=== PATIENT | female | born 1990 | race Caucasian/White ===

== ENCOUNTER → 2018-04-04 | Outpatient (CLI) | payer MEDICAID | END | disposition home or self-care (01) | LOC: LABWHC1 14:50 | PROVIDERS: ATTEND Internal Medicine Interventional Cardiology | DX: E03.9 Hypothyroidism, unspecified (principal) | CPT/HCPCS: 36415; 84443 ==

== ENCOUNTER → 2018-04-06 | Outpatient (CLI) | payer MEDICAID ==
--- NOTE | 2018-04-06 14:14 | ECHOF ---
Referral Reason:R94.31 abnormal EKG MEASUREMENTS -------- HEIGHT: 170.2 cm WEIGHT: 89.8 kg BP: 146/70 RVIDd: 2.8 cm (< 3.3) IVSd: 0.9 cm (0.6 - 1.1) LVIDd: 4.5 cm (3.9 - 5.3) LVPWd: 0.8 cm (0.6 - 1.1) IVSs: 1.4 cm LVIDs: 3.0 cm LVPWs: 1.2 cm LA Diam: 3.1 cm (2.7 - 3.8) Ao Diam: 2.7 cm (2.0 - 3.7) AV Cusp: 2.0 cm (1.5 - 2.6) MV EXCURSION: 16.920 mm (> 18.000) MV EF SLOPE: 101 mm/s (70 - 150) EPSS: 0.5 cm MV E Kevan: 1.40 m/s MV DecT: 143 ms MV A Kevan: 1.15 m/s MV E/A Ratio: 1.21 RAP: 5.00 mmHg RVSP: 28.48 mmHg FINDINGS -------- Sinus rhythm. This was a technically good study. The left ventricular size is normal. Left ventricular wall thickness is normal. Overall left vent ricular systolic function is normal with, an EF between 60 - 65 %. The right ventricle is normal in size. Normal LA size by volume 22+/-6 ml/m2. The right atrium is normal in size. The aortic valve is trileaflet and appears structurally normal. The mitral valve is normal. Mild tricuspid regurgitation present. Right ventricular systolic pressure is normal at < 35 mmHg. There is no pulmonic regurgitation present. The aortic root size is normal. Normal inferior vena cava with normal inspiratory collapse consistent with estimated right atrial pre ssure of 5 mmHg. The inferior vena cava is mildly dilated. There is no pericardial effusion. CONCLUSIONS -------- 1. Sinus rhythm. 2. This was a technically good study. 3. The left ventricular size is normal. 4. Left ventricular wall thickness is normal. 5. Overall left ventricular systolic function is normal with, an EF between 60 - 65 %. 6. The right ventricle is normal in size. 7. Normal LA size by volume 22+/-6 ml/m2. 8. The right atrium is normal in size. 9. The aortic valve is trileaflet and appears structurally normal. 10. The mitral valve is normal. 11. Mild tricuspid regurgitation present. 12. Right ventricular systolic pressure is normal at < 35 mmHg. 13. There is no pulmonic regurgitation present. 14. The aortic root size is normal. 15. Normal inferior vena cava with normal inspiratory collapse consistent with estimated right atrial pressure of 5 mmHg. 16. The inferior vena cava is mildly dilated. 17. There is no pericardial effusion. LETTER OF CREDIT CLERK: Megan Ramos RDCS
--- NOTE | 2018-04-06 14:37 | ECHOS ---
STRESS ECHOCARDIOGRAM INDICATIONS: Abnormal EKG. MEDICATIONS: Control, Atenolol, Norvasc, Cozaar. BASELINE HEART RATE: 95 BASELINE BLOOD PRESSURE: 146/70 MAXIMUM HEART RATE: 170 MAXIMUM BLOOD PRESSURE: 169/64 85% MPHR: 163 100% MPHR: 192 METS: 10.3 MAXIMUM STAGE REACHED: 3 TOTAL EXERCISE TIME: 9:00 CLINICAL INFORMATION: STRESS DATA: Pretesting physical examination showed a heart rate of 95, pressure is 146/70 mmHg. Baseline EKG showed sinus mechanism with nonspecific changes. The patient exercised on the treadmill according to Carlos protocol for a total of 9 minute and achieved 10.3 METS. Max heart rate was 170 beats per minute which is about 88% of maximum predicted heart rate. Maximum blood pressure was 169/64 mmHg. The EKG showed about 1 mm upsloping and horizontal ST-segment changes. ECHOCARDIOGRAM IMAGES: On echocardiogram images from parasternal long axis view, parasternal short axis, apical 4 chamber and apical 2 chamber view were obtained as the baseline images, at the peak of the heart rate, as well as on recovery. The echocardiogram images showed good augmentation in the left ventricular systolic function without any evidence of wall motion abnormalities concerning for ischemia. CONCLUSION: 1. Excellent exercise tolerance. 2. Mild EKG changes in response to exercise. 3. Normal echocardiogram in response to exercise. 4. Essentially normal stress echocardiogram for the patient. MMODL / IJN: [id number] /
== END | disposition home or self-care (01) ==
LOC: RADNMMAIN 09:54
PROVIDERS: ATTEND Internal Medicine Interventional Cardiology
DX: I07.1 Rheumatic tricuspid insufficiency (principal); I87.8 Other specified disorders of veins
CPT/HCPCS: 93306; 93351

== ENCOUNTER → 2018-05-07 | Outpatient (CLI) | payer MEDICAID ==
[2018-05-07 11:26] LABS: T4, Free (Free Thyroxine) 1.06 ng/dL (0.78-2.19)
[2018-05-08 13:30] LABS: Thyroid Stim Immun Quant <0.10 IU/L (<0.10)
[2018-05-10 16:36] LABS: Metanephrine, Free 53 pg/mL (< OR = 57); Normetanephrine, Free 60 pg/mL (< OR = 148); Total, Free (MN + NMN) 113 pg/mL (< OR = 205)
== END ==
LOC: LABWHC1 10:17
PROVIDERS: ATTEND Internal Medicine Endocrinology, Diabetes & Metabolism
DX: I10 Essential (primary) hypertension (principal); E05.90 Thyrotoxicosis, unspecified without thyrotoxic crisis or storm
CPT/HCPCS: 36415; 82384; 83835; 84439; 84443; 84445; 84481; 86376

== ENCOUNTER → 2018-05-09 | Outpatient (CLI) | payer MEDICAID ==
--- NOTE | 2018-05-10 09:26 | NM ---
EXAMINATION TYPE: NM thyroid image w uptake DATE OF EXAM: 05/10/2018 COMPARISON: NONE HISTORY: Hyperthyroidism TECHNIQUE: Thyroid iodine uptake is calculated and images performed after the oral administration of 319 uCi 1-123 Capsule. FINDINGS: There is normal distribution of activity throughout the gland. The 4 hour iodine uptake is calculated at 13.5% (normal range 8-14%). The 24-hour iodine uptake is calculated at 29% (normal ran ge 15-35%). IMPRESSION: 1. Uptake is at the upper limits of normal.
== END | disposition home or self-care (01) ==
LOC: RADNMMAIN 08:41
PROVIDERS: ATTEND Internal Medicine Endocrinology, Diabetes & Metabolism
DX: E05.90 Thyrotoxicosis, unspecified without thyrotoxic crisis or storm (principal)
CPT/HCPCS: 78014; A9516

== ENCOUNTER → 2018-05-21 | Outpatient (CLI) | payer MEDICAID ==
--- NOTE | 2018-05-21 16:58 | CT ---
EXAMINATION TYPE: CT abdomen wo/w con DATE OF EXAM: 05/21/2018 COMPARISON: None HISTORY: Palpitations, hypertension and decreased TSH. CT DLP: 887.7 mGycm Automated exposure control for dose reduction was used. TECHNIQUE: Helical acquisition of images was performed from the lung bases through the top of iliac crest to include entire abdomen. Patient received oral and intravenous contrast. CONTRAST: Performed with Oral Contrast and without and with IV Contrast, patient injected with 100 mL of Isovue M300. FINDINGS: LUNG BASES: No significant abnormality is appreciated. LIVER/GB: No significant abnormality is appreciated. PANCREAS: No significant abnormality is seen. SPLEEN: No significant abnormality is seen. ADRENALS: No significant abnormality is seen. KIDNEYS: No significant abnormality is seen. BOWEL: No significant abnormality is seen. LYMPH NODES: No significant abnormality is appreciated. OSSEOUS STRUCTURES: No significant abnormality is seen. FREE AIR: No Free Air visible ASCITES: None visible. RETROPERITONEAL ADENOPATHY: No Retroperitoneal Adenopathy visible. IMPRESSION: NO SIGNIFICANT ABNORMALITIES EVIDENT.
== END | disposition home or self-care (01) ==
LOC: RADCTMAIN 15:35
PROVIDERS: ATTEND Internal Medicine Endocrinology, Diabetes & Metabolism
DX: E27.9 Disorder of adrenal gland, unspecified (principal)
CPT/HCPCS: 74170; Q9967

== ENCOUNTER → 2018-06-23 | Outpatient (CLI) | payer MEDICAID ==
[2018-06-23 23:18] LABS: Creatinine 24 Hour,Urine 1.39 g/24Hr (0.80-1.80)
[2018-06-26 12:04] LABS: Dopamine 24 Hr Urine 416 ug/day (65-400); Epinephrine 24 Hr Urine 8 ug/day (0-20); Norepinephrine 24 Hr Urine 46 ug/day (15-80); Total Catecholamines Urine 54 ug/day (15-100); Urine Creatinine,24 Hr 1.7 gm/24h (0.8-1.8)
== END ==
LOC: LABWHC1 09:22
PROVIDERS: ATTEND Internal Medicine Endocrinology, Diabetes & Metabolism
DX: D35.00 Benign neoplasm of unspecified adrenal gland (principal)
CPT/HCPCS: 36415; 81050; 82384; 82570; 83835

== ENCOUNTER → 2018-07-27 | Outpatient (CLI) | payer MEDICAID ==
[2018-07-27 10:22] LABS: Basophils # (A) 0.1 k/uL (0-0.2); Basophils % (A) 1 %; Eosinophils # (A) 0.1 k/uL (0-0.7); Eosinophils % (A) 1 %; HCT 44.1 % (34.0-46.0); HGB 14.4 gm/dL (11.4-16.0); Lymphocytes # (A) 2.2 k/uL (1.0-4.8); Lymphocytes % (A) 23 %; MCH 30.9 pg (25.0-35.0); MCHC 32.6 g/dL (31.0-37.0); MCV 94.7 fL (80.0-100.0); Mean Platelet Volume 7.3; Monocytes # (A) 0.6 k/uL (0-1.0); Monocytes % (A) 6 %; Neutrophils # (A) 6.6 k/uL (1.3-7.7); Neutrophils % (A) 68 %; Platelet Count 288 k/uL (150-450); RBC 4.66 m/uL (3.80-5.40); RDW 13.4 % (11.5-15.5); WBC 9.7 k/uL (3.8-10.6)
[2018-07-27 17:28] LABS: T4, Free (Free Thyroxine) 1.3 ng/dL (0.80-1.80)
== END ==
LOC: LABWHC1 09:04
PROVIDERS: ATTEND Internal Medicine Endocrinology, Diabetes & Metabolism
DX: E05.90 Thyrotoxicosis, unspecified without thyrotoxic crisis or storm (principal); I10 Essential (primary) hypertension
CPT/HCPCS: 36415; 84439; 84443; 84450; 84460; 84481; 85025

== ENCOUNTER → 2018-09-27 | Outpatient (CLI) | payer MEDICAID ==
[2018-09-27 19:14] LABS: T4, Free (Free Thyroxine) 0.9 ng/dL (0.80-1.80)
== END | disposition home or self-care (01) ==
LOC: LABWHC1 11:22
PROVIDERS: ATTEND Internal Medicine Endocrinology, Diabetes & Metabolism
DX: I10 Essential (primary) hypertension (principal); E05.90 Thyrotoxicosis, unspecified without thyrotoxic crisis or storm
CPT/HCPCS: 36415; 84439; 84443; 84481

== ENCOUNTER → 2018-10-13 | Outpatient (CLI) | payer MEDICAID | LOC: LABWHC1 08:23 | PROVIDERS: ATTEND Internal Medicine Endocrinology, Diabetes & Metabolism | DX: I10 Essential (primary) hypertension (principal); E05.90 Thyrotoxicosis, unspecified without thyrotoxic crisis or storm; R25.1 Tremor, unspecified | CPT/HCPCS: 36415 ==

== ENCOUNTER → 2018-10-16 | Outpatient (CLI) | payer MEDICAID ==
--- NOTE | 2018-10-16 16:50 | CONS ---
CONSULTATION REASON FOR CONSULTATION: Insomnia. 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 Over the past one year the patient has been having difficulties with sleep maintenance. Prior to that, her sleep quality was good. She never had any issues with her sleep quality prior to that during her teenage years and her early 20s. The patient was identified to have issues with hypertension. Subsequently she started having problems with a tremor, and she also had some limited weight loss. She was seen by Dr. Ross, and the patient has been placed on various antihypertensive medication, including a diuretic. The diuretic was subsequently discontinued and the patient is currently taking a combination of losartan and Norvasc. She has been worked up on outpatient basis, including an echocardiogram that showed no significant abnormalities. The patient has a preserved LV function with an ejection fraction of 60% to 65%. There was no evidence of any hypertensive heart disease and there is no evidence of pulmonary hypertension. Subsequently she was seen by Endocrinology. Based on her elevated blood pressures, the patient was given a pheochromocytoma screen, and serum metanephrines and normetanephrines were checked; her levels were not elevated. Nevertheless, the patient is still being considered for the same diagnosis and she was referred to [facility]. She was noted to also be having a suppressed TSH. Her TSH was down to 0.8 with a free T4 and free T3 being normal at 1.3 and 3.5, respectively. Based on her symptoms, she was treated for hyperthyroidism and she was started on high-dose Tapazole 15 mg, which was later on dropped down to 10 mg, knowing that her TSH came up at 6.9 and her free T4 came down to 0.9 and her free T3 came down to 3.3. The patient reports that since initiation of methimazole and later on propranolol, her tremors have subsided. Her sleep quality did not get much affected. Note that during this time, the patient started having some sleep maintenance insomnia. She has no difficulty initiating sleep. She goes to bed around 9 or 10 p.m.; however, she will wake up between 2 and 3 a.m. in the morning and she is unable to go to back to sleep. Exact reason for the arousals is not known. She ultimately gets out of bed between 5 and 6 a.m. in the morning. She does not take any naps during the day. She has the same problem on weekends. She noted that there may be some slight improvement over the past few months with the above-mentioned treatment. No snoring. No choking or gasping sensation. No grinding of the teeth. No nocturia. No nighttime sweating. No nighttime heartburn, chest pain or shortness of breath. No restlessness in the lower extremities. No history of any depression or anxiety, claustrophobia or substance abuse, head trauma or seizure activity. PAST MEDICAL HISTORY: 1. Hypertension. 2. Hyperthyroidism. PAST SURGICAL HISTORY: None. DRUG ALLERGIES: NOT KNOWN. OUTPATIENT MEDICATION LIST: Includes: 1. Cozaar 100 mg p.o. daily. 2. 80 mg ER 1 tablet a day. 3. Norvasc 5 mg p.o. daily. 4. Methimazole 10 mg p.o. daily. SOCIAL HISTORY: Nonsmoker. No history of alcoholism. No history of IV drugs. She is a nurse. FAMILY HISTORY: Noncontributory. Negative for sleep apnea. REVIEW OF SYSTEMS: Twelve-point review of systems was done. Positive findings were all mentioned above in the history of present illness. She has a 10-pound weight loss. No history of any cardiac disease. She has hypertension. Liver function is within normal. CBC has been within normal limits. No nausea or vomiting. No headache. No altered mentation. No anxiety. No PTSD. No head trauma. No meningitis. No substance abuse. PHYSICAL EXAMINATION: BP is 134/76, pulse 77, respirations 16, temperature 98.2, saturation 99% on room air. Weight is 189. Height is 5 feet 7 inches. Neck size is 13 inches. Boston score is 7. GENERAL APPEARANCE: Calm, comfortable. Head is atraumatic, normocephalic. NECK: Supple. No JVD. No goiter or neck masses. LUNGS: Clear to auscultation. Heart sounds are regular rate and rhythm. Normal S1, S2. No S3, S4. No murmurs. ABDOMEN: Soft, nontender. No organomegaly. EXTREMITIES: No edema. No cyanosis or clubbing. Neurologically the patient is alert and oriented x3. There is no neurological deficit. PSYCHIATRIC: Negative for anxiety or depression. IMPRESSION: 1. Sleep maintenance insomnia. This is most likely secondary to some endocrinologic disturbances. The patient may have an underlying hyperthyroidism, which typically is associated with tremors, weight loss and insomnia. Another possibility would include pheochromocytoma, for which the patient is under investigation. 2. Hypertension. 3. Hyperthyroidism. PLAN: 1. Discussed the findings with the patient. 2. I highly doubt an intrinsic sleep disorder. 3. To optimize her sleep quality, I will give her a month's supply of Lunesta 1 mg, which will help her with sleep induction and maintenance. During this time the patient will have an evaluation at [facility], and she get back to me on her overall clinical response with Lunesta. She has good sleep hygiene measures. I do not suspect any other form of underlying sleep disorder. Her insomnia is probably related to endocrinologic/metabolic disturbance. Will follow. MMODL / IJN: [id number] /
== END | disposition home or self-care (01) ==
LOC: SLEEP 13:32
PROVIDERS: ATTEND Internal Medicine Critical Care Medicine
DX: G47.00 Insomnia, unspecified (principal); I10 Essential (primary) hypertension; E05.90 Thyrotoxicosis, unspecified without thyrotoxic crisis or storm; Z79.899 Other long term (current) drug therapy
CPT/HCPCS: 99211

== ENCOUNTER → 2019-01-05 | Outpatient (CLI) | payer MEDICAID ==
[2019-01-05 12:19] LABS: Basophils # (A) 0.1 k/uL (0-0.2); Basophils % (A) 1 %; Eosinophils # (A) 0.1 k/uL (0-0.7); Eosinophils % (A) 1 %; HCT 43.4 % (34.0-46.0); HGB 13.8 gm/dL (11.4-16.0); Lymphocytes # (A) 2.2 k/uL (1.0-4.8); Lymphocytes % (A) 25 %; MCH 29.8 pg (25.0-35.0); MCHC 31.7 g/dL (31.0-37.0); Mean Platelet Volume 7.8; Monocytes # (A) 0.6 k/uL (0-1.0); Monocytes % (A) 7 %; Neutrophils # (A) 5.7 k/uL (1.3-7.7); Neutrophils % (A) 65 %; Platelet Count 287 k/uL (150-450); RBC 4.62 m/uL (3.80-5.40); RDW 13.7 % (11.5-15.5); WBC 8.8 k/uL (3.8-10.6)
[2019-01-05 17:46] LABS: T4, Free (Free Thyroxine) 1.4 ng/dL (0.80-1.80)
== END | disposition home or self-care (01) ==
LOC: LABWHC1 11:23
PROVIDERS: ATTEND Internal Medicine Endocrinology, Diabetes & Metabolism
DX: E05.90 Thyrotoxicosis, unspecified without thyrotoxic crisis or storm (principal); I10 Essential (primary) hypertension; R25.1 Tremor, unspecified
CPT/HCPCS: 36415; 84439; 84443; 84450; 84460; 84481; 85025

== ENCOUNTER → 2019-09-20 | Outpatient (CLI) | payer MEDICAID ==
[2019-09-20 11:11] LABS: HGB 14.3 gm/dL (11.4-16.0); MCH 31.4 pg (25.0-35.0); MCHC 32.5 g/dL (31.0-37.0); MCV 96.5 fL (80.0-100.0); Mean Platelet Volume 8.1; Platelet Count 260 k/uL (150-450); RBC 4.56 m/uL (3.80-5.40); RDW 12.3 % (11.5-15.5); WBC 7.9 k/uL (3.8-10.6)
[2019-09-20 16:46] LABS: African American GFR (CKD) 142.8 (60.0-200.0); Albumin 4.3 g/dL (3.80-4.90); Albumin/Globulin Ratio 2.53 (1.60-3.17); Anion Gap 8.1 mmol/L (4.00-12.00); BUN/Creat Ratio 18.33 Ratio (12.00-20.00); Calcium 9.3 mg/dL (8.7-10.3); Carbon Dioxide 26.9 mmol/L (21.6-31.8); Globulin 1.7 g/dL (1.6-3.3); Non-African American GFR(CKD) 123.2 (60.0-200.0); Potassium 4.5 mmol/L (3.5-5.5); Total Bilirubin 0.5 mg/dL (0.3-1.2)
[2019-09-20 16:56] LABS: T4, Free (Free Thyroxine) 1.7 ng/dL (0.80-1.80)
== END | disposition home or self-care (01) ==
LOC: LABWHC1 09:30
PROVIDERS: ATTEND Internal Medicine
DX: E05.90 Thyrotoxicosis, unspecified without thyrotoxic crisis or storm (principal)
CPT/HCPCS: 36415; 80053; 84439; 84443; 84481; 85027

== ENCOUNTER → 2020-12-28 | Outpatient (CLI) | payer MEDICAID ==
[2020-12-28 15:05] LABS: HCT 38.6 % (37.2-46.3); HGB 12.4 g/dL (12.0-15.0); MCH 30.8 pg (27.0-32.0); MCHC 32.1 g/dL (32.0-37.0); MCV 95.8 fL (80.0-97.0); Mean Platelet Volume 11.1 fL (9.5-12.2); Platelet Count 254 X 10*3/uL (140-440); RBC 4.03 X 10*6/uL (4.10-5.20); RDW 13.3 % (11.5-14.5); WBC 7.14 X 10*3/uL (4.50-10.00)
[2020-12-28 16:59] LABS: African American GFR (CKD) 134.7 (60.0-200.0); Albumin 3.9 g/dL (3.80-4.90); Albumin/Globulin Ratio 1.95 (1.60-3.17); Anion Gap 4.4 mmol/L (4.00-12.00); BUN/Creat Ratio 18.57 Ratio (12.00-20.00); Calcium 8.8 mg/dL (8.7-10.3); Carbon Dioxide 26.6 mmol/L (21.6-31.8); Chol/HDL Ratio 2.56; Non-African American GFR(CKD) 116.3 (60.0-200.0); Potassium 4.2 mmol/L (3.5-5.5); Total Bilirubin 0.6 mg/dL (0.3-1.2); Total Protein 5.9 g/dL (6.2-8.2)
[2020-12-28 17:07] LABS: T4, Free (Free Thyroxine) 1.4 ng/dL (0.80-1.80)
== END | disposition home or self-care (01) ==
LOC: LABWHC1 08:03
PROVIDERS: ATTEND Internal Medicine
DX: I15.2 Hypertension secondary to endocrine disorders (principal); I10 Essential (primary) hypertension; E05.90 Thyrotoxicosis, unspecified without thyrotoxic crisis or storm; E55.9 Vitamin D deficiency, unspecified; G47.01 Insomnia due to medical condition
CPT/HCPCS: 36415; 80053; 80061; 82306; 84439; 84443; 84481; 85027

== ENCOUNTER → 2021-04-02 | Outpatient (CLI) | payer MEDICAID ==
--- NOTE | 2021-04-02 16:50 | US ---
EXAMINATION TYPE: US thyroid st tissue head/neck DATE OF EXAM: 04/02/2021 COMPARISON: NM uptake CLINICAL HISTORY: Enlarged thyroid. Pt states felt thyroid was enlarged GLAND SIZE: Right Lobe: 6.4 x 1.8 x 2.4 cm Overall Parenchyma: heterogenous Left Lobe: 6.5 x 1.8 x 2.4 cm Overall Parenchyma: heterogeneous Isthmus Thickness: 0.3 cm Bilateral neck scanned, no evidence of lymphadenopathy. Bilateral thyroid appeared enlarged and heter ogeneous. IMPRESSION: Thyromegaly
== END | disposition home or self-care (01) ==
LOC: RADUSWWP 12:32
PROVIDERS: ATTEND Internal Medicine
DX: E07.9 Disorder of thyroid, unspecified (principal)
CPT/HCPCS: 76536

== ENCOUNTER → 2023-09-28 | Outpatient (CLI) | payer MEDICAID, BC ==
[2023-09-28 17:08] LABS: BUN/Creat Ratio 24.14 Ratio (12.00-20.00); Blood Urea Nitrogen 16.9 mg/dL (9.0-27.0); Chloride 103 mmol/L (96-109); Glucose 88 mg/dL (70-110); Potassium 4.6 mmol/L (3.5-5.5); Sodium 141 mmol/L (135-145)
[2023-09-28 17:09] LABS: ALT 21 U/L (8-44); AST 22 U/L (13-35); Albumin 4.4 g/dL (3.8-4.9); Albumin/Globulin Ratio 1.83 Ratio (1.60-3.17); Alkaline Phosphatase 43 U/L (41-126); Calcium 9.8 mg/dL (8.7-10.3); Carbon Dioxide 28.1 mmol/L (21.6-31.8); Globulin 2.4 g/dL (1.6-3.3); T4, Free (Free Thyroxine) 2.25 ng/dL (0.80-1.80); Total Bilirubin 0.5 mg/dL (0.3-1.2); Total Protein 6.8 g/dL (6.2-8.2)
== END | disposition home or self-care (01) ==
LOC: LABWHC1 09:25
PROVIDERS: ATTEND Internal Medicine
DX: E05.90 Thyrotoxicosis, unspecified without thyrotoxic crisis or storm (principal)
CPT/HCPCS: 36415; 80053; 84439; 84443; 84481

== ENCOUNTER → 2023-12-21 | Outpatient (CLI) | payer BC ==
[2023-12-21 14:24] LABS: HCT 42.7 % (37.2-46.3); HGB 13.8 g/dL (12.0-15.0); MCH 30.1 pg (27.0-32.0); MCHC 32.3 g/dL (32.0-37.0); MCV 93.2 FL (80.0-97.0); Mean Platelet Volume 10.4 FL (9.5-12.2); NRBC Per 100 WBC 0 X 10*3/uL (0.00-0.01); Platelet Count 315 X 10*3/uL (140-440); RBC 4.58 X 10*6/uL (4.10-5.20); RDW 12.9 % (11.5-14.5); WBC 6.42 X 10*3/uL (4.50-10.00)
[2023-12-21 15:05] LABS: ALT 25 U/L (8-44); AST 24 U/L (13-35); Albumin 4.4 g/dL (3.8-4.9); Alkaline Phosphatase 45 U/L (41-126); BUN/Creat Ratio 21.14 Ratio (12.00-20.00); Blood Urea Nitrogen 14.8 mg/dL (9.0-27.0); Calcium 9.8 mg/dL (8.7-10.3); Carbon Dioxide 25.6 mmol/L (21.6-31.8); Chloride 104 mmol/L (96-109); Globulin 2.1 g/dL (1.6-3.3); Glucose 91 mg/dL (70-110); Potassium 4.7 mmol/L (3.5-5.5); Sodium 139 mmol/L (135-145); T4, Free (Free Thyroxine) 1.56 ng/dL (0.80-1.80); Total Bilirubin 0.7 mg/dL (0.3-1.2); Total Protein 6.5 g/dL (6.2-8.2)
== END | disposition home or self-care (01) ==
LOC: LABWHC1 09:20
PROVIDERS: ATTEND Internal Medicine
DX: E05.90 Thyrotoxicosis, unspecified without thyrotoxic crisis or storm (principal)
CPT/HCPCS: 36415; 80053; 84439; 84443; 84481; 85027

== ENCOUNTER → 2024-03-28 | Outpatient (CLI) | payer BC | END | disposition home or self-care (01) | LOC: LABPRL 08:59 | PROVIDERS: ATTEND Family Medicine | CPT/HCPCS: 80053; 80061; 82306; 84439; 84443; 84481; 85027 ==

== ENCOUNTER → 2024-04-26 | Outpatient (CLI) | payer BC ==
[2024-04-26 10:55] LABS: HCT 39.2 % (37.2-46.3); HGB 12.9 g/dL (12.0-15.0); MCH 30.5 pg (27.0-32.0); MCHC 32.9 g/dL (32.0-37.0); MCV 92.7 FL (80.0-97.0); Mean Platelet Volume 10.7 FL (9.5-12.2); NRBC Per 100 WBC 0 X 10*3/uL (0.00-0.01); Platelet Count 273 X 10*3/uL (140-440); RBC 4.23 X 10*6/uL (4.10-5.20); RDW 12.4 % (11.5-14.5); WBC 12.34 X 10*3/uL (4.50-10.00)
[2024-04-26 11:20] LABS: ALT 31 U/L (8-44); AST 22 U/L (13-35); Albumin 3.7 g/dL (3.8-4.9); Albumin/Globulin Ratio 1.85 Ratio (1.60-3.17); Alkaline Phosphatase 41 U/L (41-126); Blood Urea Nitrogen 11.8 mg/dL (9.0-27.0); Carbon Dioxide 23.8 mmol/L (21.6-31.8); Chloride 106 mmol/L (96-109); Glucose 78 mg/dL (70-110); Potassium 4.4 mmol/L (3.5-5.5); Sodium 138 mmol/L (135-145); T4, Free (Free Thyroxine) 1.35 ng/dL (0.80-1.80); Total Bilirubin 0.2 mg/dL (0.3-1.2); Total Protein 5.7 g/dL (6.2-8.2)
== END | disposition home or self-care (01) ==
LOC: LABWHC1 06:54
PROVIDERS: ATTEND Internal Medicine
DX: E05.90 Thyrotoxicosis, unspecified without thyrotoxic crisis or storm (principal)
CPT/HCPCS: 36415; 80053; 84439; 84443; 84481; 85027

== ENCOUNTER → 2024-07-22 | Outpatient (CLI) | payer BC ==
[2024-07-22 16:10] LABS: ALT 25 U/L (8-44); AST 24 U/L (13-35); Albumin 3.3 g/dL (3.8-4.9); Albumin/Globulin Ratio 1.74 Ratio (1.60-3.17); Alkaline Phosphatase 54 U/L (41-126); Blood Urea Nitrogen 7.8 mg/dL (9.0-27.0); Carbon Dioxide 22.3 mmol/L (21.6-31.8); Chloride 104 mmol/L (96-109); Globulin 1.9 g/dL (1.6-3.3); Glucose 100 mg/dL (70-110); Sodium 136 mmol/L (135-145); T4, Free (Free Thyroxine) 0.66 ng/dL (0.80-1.80); Total Bilirubin 0.2 mg/dL (0.3-1.2); Total Protein 5.2 g/dL (6.2-8.2)
[2024-07-22 16:11] LABS: HCT 35.8 % (37.2-46.3); HGB 11.9 g/dL (12.0-15.0); MCH 30.5 pg (27.0-32.0); MCHC 33.2 g/dL (32.0-37.0); MCV 91.8 FL (80.0-97.0); Mean Platelet Volume 10.7 FL (9.5-12.2); NRBC Per 100 WBC 0 X 10*3/uL (0.00-0.01); Platelet Count 277 X 10*3/uL (140-440); RDW 13.4 % (11.5-14.5); WBC 16.08 X 10*3/uL (4.50-10.00)
== END | disposition home or self-care (01) ==
LOC: LABWHC1 12:59
PROVIDERS: ATTEND Internal Medicine
DX: E05.90 Thyrotoxicosis, unspecified without thyrotoxic crisis or storm (principal)
CPT/HCPCS: 36415; 80053; 84439; 84443; 84481; 85027

== ENCOUNTER 2024-09-17 16:00 | Inpatient (IN) | payer BC ==
[2024-09-17] MEDS: DINOPROSTONE 10 MG INSERT.ER VAGINAL ONE (17:36)
[2024-09-17] MEDS ORDERED: miSOPROStoL 200 MCG TAB PO PRN (17:50)
[2024-09-17] MEDS ORDERED: miSOPROStoL 200 MCG TAB RECTAL PRN (17:50)
[2024-09-17] MEDS ORDERED: CARBOPROST TROMETHAMINE 250 MCG/ML 1 ML AMP IM PRN (17:50)
[2024-09-17] MEDS ORDERED: METHYLERGONOVINE 0.2 MG/ML 1 ML AMP IM PRN (17:50)
[2024-09-17] MEDS ORDERED: TRANEXAMIC 1,000 MG/100ML-NACL 1,000 MG in EMPTY BAG 1 BAG IV PRN (17:50)
[2024-09-17] MEDS ORDERED: TERBUTALINE 1 MG/ML VIAL SQ PRN (17:50)
[2024-09-17] MEDS ORDERED: OXYTOCIN 10 UNIT/ML 1 ML VIAL IM PRN (17:50)
--- NOTE | 2024-09-17 17:50 | P.HPOB ---
History of Present Illness H&P Date: 09/17/24 Chief Complaint: IUP at 37 weeks, chronic hypertension 34-year-old 1 para 0 at 37-0/7 weeks that presents to labor and delivery for induction of labor secondary to chronic hypertension on labetalol 300 mg 3 times daily. Patient has been receiving routine care which has been essentially uncomplicated. Patient has had normal testing. Patient notes good movement denies vaginal bleeding loss of fluid or contractions. On blood work this patient is a type of a positive, rubella status nonimmune, hepatitis B surface engine negative, HIV negative, RPR is nonreactive, grew beta strep culture was positive. 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 History of Any Multi-Drug Resistant Organisms: None Reported Past Surgical History: No Surgical Hx Reported Past Anesthesia/Blood Transfusion Reactions: No Reported Reaction Past Psychological History: No Psychological Hx Reported Smoking Status: Never smoker Past Alcohol Use History: None Reported Past Drug Use History: None Reported - Past Family History Sister(s) Additional Family Medical History / Comment(s): biliary atrisia, liver transplant at 6 months Mother Family Medical History: Hypertension Medications and Allergies Home Medications Medication Instructions Recorded Confirmed Type Labetalol [Trandate] 300 mg PO BID 09/17/24 09/17/24 History methIMAzole [Tapazole] 5 mg PO DAILY 09/17/24 09/17/24 History Allergies Allergy/AdvReac Type Severity Reaction Status Date / Time No Known Allergies Allergy Verified 09/17/24 16:33 Exam Osteopathic Statement: *. No significant issues noted on an osteopathic structural exam other than those noted in the History and Physical/Consult. Vital Signs Temp Pulse Resp BP Pulse Ox 09/17/24 17:22 98.3 F 84 16 136/79 99 Intake and Output 09/17/24 09/17/24 09/17/24 06:59 14:59 22:59 Other: Weight 106.594 kg Targeted physical exam is performed this date General This is a well-nourished well-developed female in no acute distress, breathing is nonlabored, heart has a regular rhythm, abdomen is gravid, on cervical exam she is 1/50/-3 station vertex presentation, Cervidil is placed without difficulty. heart tones noted to be category 1 and she is not elsa. Assessment and Plan (1) Term Current Visit: Yes Status: Acute Code(s): Z34.90 - ENCNTR FOR SUPRVSN OF NORMAL , UNSP, UNSP TRIMESTER SNOMED Code(s): 92315753 (2) Chronic hypertension Narrative/Plan: Labetalol 300 mg 3 times daily Current Visit: Yes Status: Acute Code(s): I10 - ESSENTIAL (PRIMARY) HYPERTENSION SNOMED Code(s): 74561572 Plan: 34-year-old 1 para 0 at 37-0/7 weeks that presents for induction of labor secondary to chronic hypertension. Cervidil is placed without difficulty. Options for analgesia are discussed including Nubain, nitrous, epidural. Patient is counseled on labor and questions are answered. Continuous monitoring Clear liquid diet as tolerated
[2024-09-17 18:07] LABS: Basophils % (A) 0 %; Eosinophils # (A) 0.1 k/uL (0-0.7); Eosinophils % (A) 1 %; HCT 37.1 % (34.0-46.0); HGB 12.4 gm/dL (11.4-16.0); Lymphocytes # (A) 1.5 k/uL (1.0-4.8); Lymphocytes % (A) 14 %; MCHC 33.3 g/dL (31.0-37.0); Mean Platelet Volume 8.3; Monocytes # (A) 0.6 k/uL (0-1.0); Monocytes % (A) 6 %; Neutrophils # (A) 8.3 k/uL (1.3-7.7); Neutrophils % (A) 78 %; Platelet Count 246 k/uL (150-450); RBC 3.99 m/uL (3.80-5.40); RDW 12.9 % (11.5-15.5); WBC 10.7 k/uL (3.8-10.6)
[2024-09-17 18:18] LABS: ALT 70 U/L (4-34); AST 47 U/L (14-36); African American GFR (CKD) >90 (>60 ml/min/1.73 sqM); Blood Urea Nitrogen 9 mg/dL (7-17); INR 0.8 (<1.2); LDH 201 U/L (120-246); Non-African American GFR(CKD) >90 (>60 ml/min/1.73 sqM); Partial Thromboplastin Time 22.7 sec (22.0-30.0); Prothrombin Time 9.5 sec (10.0-12.5); Uric Acid 3.9 mg/dL (3.7-7.4)
[2024-09-17 18:19] LABS: Creatinine,Urine Random 212.5 mg/dL; Protein/Creatinine Ratio,Urine 0.033
[2024-09-17 18:22] LABS: Appearance,Urine Cloudy (Clear); Bacteria,Urine Rare /hpf; Bilirubin,Urine Negative (Negative); Blood,Urine Negative (Negative); Calcium Oxalate Crystals,Urine Moderate /hpf; Color,Urine Yellow; Glucose,Urine (UA) Negative (Negative); Ketones,Urine Negative (Negative); Leukocyte Esterase,Urine Negative (Negative); Mucus,Urine Many /hpf; Nitrite,Urine Negative (Negative); Protein,Urine Trace (Negative); RBC,Urine 1 /hpf (0-5); Specific Gravity,Urine 1.031 (1.001-1.035); Squamous Epithelial Cell,Urine 3 /hpf (0-4); Urobilinogen,Urine <2.0 mg/dL (<2.0); WBC,Urine 3 /hpf (0-5)
[2024-09-17] MEDS: LACTATED RINGERS 1,000 ML IV SCH (20:14)
[2024-09-17] MEDS: LABETALOL 100 MG TAB PO SCH (20:18)
[2024-09-17] MEDS ORDERED: LABETALOL 100 MG TAB PO SCH (21:00)
[2024-09-18] MEDS: AMPICILLIN 1,000 MG in SODIUM CHLORIDE 0.9% 50 ML IVPB SCH (05:30)
[2024-09-18] MEDS: AMPICILLIN 2,000 MG in SODIUM CHLORIDE 0.9% 100 ML IVPB STA (06:12)
[2024-09-18] MEDS: OXYTOCIN 30 UNITS/500 ML NS 30 UNIT in SALINE 1 500ML.BAG IV SCH (06:13)
[2024-09-18] MEDS: methIMAzole 5 MG TAB PO SCH (08:35)
[2024-09-18] MEDS: NALBUPHINE 10 MG/ML (10 ML MDV) IV PRN (14:46)
[2024-09-18] MEDS ORDERED: ZOLPIDEM 5 MG TAB PO PRN (16:22)
[2024-09-18] MEDS ORDERED: diphenhydrAMINE 25 MG CAP PO PRN (16:22)
[2024-09-18] MEDS ORDERED: SIMETHICONE 80 MG CHEWABLE PO PRN (16:22)
[2024-09-18] MEDS ORDERED: diphenhydrAMINE 50 MG CAP PO PRN (16:22)
[2024-09-18] MEDS ORDERED: LANOLIN CREAM 1 GM TUBE TOPICAL PRN (16:22)
[2024-09-18] MEDS ORDERED: diphenhydrAMINE 50 MG/ML 1 ML VIAL IVP PRN ×2 (16:22)
[2024-09-18] MEDS ORDERED: HYDROCORTISONE 2.5% RECTAL CREAM 30 GM TUBE RECTAL PRN (16:22)
--- NOTE | 2024-09-18 16:25 | P.PROBDLV ---
Vaginal Delivery Note - . Vaginal Delivery Note: 34-year-old 1 para 0 at 37 weeks that presented last evening for Cervidil induction of labor secondary to chronic hypertension on labetalol. Patient had normal testing. For full details see the patient's dictated history and physical. Patient was admitted and Cervidil was placed without difficulty last evening. Patient did well through the night noted cramping. This morning patient was begun on Pitocin for augmentation of labor. She went underwent amniotomy and clear fluid was obtained. Patient made good progress through labor receiving Nubain x 1 for analgesia. Patient progressed to complete dilation. Once completely dilated with excellent maternal effort patient began pushing and had a normal spontaneous vaginal delivery of a viable male at 1604. Apgars of 8 and 9 at 1 and 5 minutes respectively. After 2-minute delay the umbilical cord was doubly clamped and cut and the placenta was delivered spontaneously intact with a three-vessel cord being noted. Spontaneous cry was noted at . Weight is pending. On inspection the patient's vaginal vault a left lateral vaginal wall laceration was appreciated this was injected with lidocaine and repaired in usual fashion with 3-0 Rapide. Uterus was noted to be firm below the umbilicus. All counts were noted be correct x 2 at the end of the delivery. Patient and tolerated delivery well and are resting comfortably.
[2024-09-18] MEDS: LIDOCAINE 0.5% (PF) 5 MG/ML (50 ML SDV) SQ PRN (16:37)
[2024-09-18] MEDS: BENZOCAINE/MENTHOL SPRAY 1 GM/SPRAY AEROSOL TOPICAL PRN (16:38)
[2024-09-18] MEDS: IBUPROFEN 800 MG TAB PO SCH (16:44)
[2024-09-18] MEDS: ACETAMINOPHEN TAB 500 MG TAB PO SCH (21:15)
[2024-09-18] MEDS: SENNOSIDES-DOCUSATE SODIUM 1 EACH TAB PO SCH (21:16)
[2024-09-19 05:18] LABS: HCT 31.9 % (34.0-46.0); HGB 10.6 gm/dL (11.4-16.0); MCHC 33.4 g/dL (31.0-37.0); Mean Platelet Volume 8.7; Platelet Count 225 k/uL (150-450); RBC 3.43 m/uL (3.80-5.40); RDW 13.2 % (11.5-15.5); WBC 19.2 k/uL (3.8-10.6)
[2024-09-19 05:27] LABS: INR 0.9 (<1.2); Partial Thromboplastin Time 22.9 sec (22.0-30.0); Prothrombin Time 9.9 sec (10.0-12.5)
[2024-09-19 05:36] LABS: Uric Acid 3.7 mg/dL (3.7-7.4)
--- NOTE | 2024-09-19 10:32 | P.PNOBGVD ---
Subjective - Subjective Principal diagnosis: day #1 Interval history: She is doing well . She denies concerns. She is ambulating and voiding without difficulty. On lab evaluation some improvement of AST ALT elevation. Blood pressures have been controlled. Eating without difficulty. Does remain in the nursery on O2. Patient reports: Reports appetite normal, Reports voiding normally, Reports pain well controlled, Reports ambulating normally Anderson: doing well (Special care nursery) Objective - Latest Vital Signs Latest vital signs: Vital Signs Temp Pulse Pulse Resp BP Pulse Ox 09/19/24 07:55 97.9 F 79 16 126/76 99 09/19/24 04:35 98.0 F 78 16 133/75 98 09/19/24 00:15 98.1 F 86 18 120/72 98 09/18/24 22:20 146/68 09/18/24 19:53 97.8 F 99 16 124/75 97 09/18/24 18:20 81 16 134/63 09/18/24 18:05 85 16 134/63 09/18/24 17:50 97.5 F L 83 16 133/82 09/18/24 17:35 88 16 133/63 09/18/24 17:20 81 16 137/61 09/18/24 17:05 97 16 130/66 09/18/24 16:50 67 16 134/68 09/18/24 16:35 83 16 136/75 09/18/24 16:20 97.0 F L 85 16 137/72 Intake and Output 09/18/24 09/19/24 09/19/24 22:59 06:59 14:59 Intake Total 19.767 Output Total 150 Balance -130.233 Intake: Intake, IV Titration 19.767 Amount Oxytocin 30 Units/500 ml 19.767 Ns 30 unit In Saline 1 500ml.bag @ Per Protocol IV .Q0M [facility] Rx#:[id number] Output: Output, Quantitative 150 Blood Loss Other: # Voids 2 2 - Exam Extremities: Present: normal, edema Abdomen: Present: normal appearance, soft Uterus: Present: normal, firm - Labs Labs: Abnormal Lab Results - Last 24 Hours (Table) 09/19/24 09/19/24 09/19/24 Range/Units 04:53 04:53 04:53 WBC 19.2 H (3.8-10.6) k/uL RBC 3.43 L (3.80-5.40) m/uL Hgb 10.6 L (11.4-16.0) gm/dL Hct 31.9 L (34.0-46.0) % PT 9.9 L (10.0-12.5) sec AST 43 H (14-36) U/L ALT 58 H (4-34) U/L Assessment and Plan (1) Term Current Visit: Yes Status: Acute Code(s): Z34.90 - ENCNTR FOR SUPRVSN OF NORMAL , UNSP, UNSP TRIMESTER SNOMED Code(s): 88051443 (2) Chronic hypertension Current Visit: Yes Status: Acute Code(s): I10 - ESSENTIAL (PRIMARY) HYPERTENSION SNOMED Code(s): 07902991 (3) Status post vaginal delivery Current Visit: Yes Status: Acute Code(s): LCV1129 - SNOMED Code(s): 056974432 (4) Obstetrical laceration Current Visit: Yes Status: Acute Code(s): O71.9 - OBSTETRIC TRAUMA, UNSPECIFIED SNOMED Code(s): 963684401 Plan: Patient is doing well . Will continue routine care, anticipate discharge home tomorrow.
[2024-09-19] MEDS: MEASLES-MUMPS-RUBELLA VACC/PF 12,500 UNIT/0.5 ML VIAL SQ ONE (12:15)
--- NOTE | 2024-09-20 08:52 | P.DS ---
Providers Date of admission: 09/17/24 16:03 Expected date of discharge: 09/20/24 Attending physician: Tammy Ya Primary care physician: Stated None - Discharge Diagnosis(es) (1) Term Current Visit: Yes Status: Acute (2) Chronic hypertension Current Visit: Yes Status: Acute (3) Status post vaginal delivery Current Visit: Yes Status: Acute (4) Obstetrical laceration Current Visit: Yes Status: Acute Hospital Course: 34-year-old 1 now para 1 that presented to labor and delivery at 37-0/7 weeks for scheduled induction of labor secondary to chronic hypertension on labetalol 300 mg 3 times a day. Patient in addition had noted elevated liver enzymes consistent with preeclampsia. Patient was admitted to labor and delivery and Cervidil induction was begun. Patient made minimal progress through the night, Cervidil was removed around 5 AM. Pitocin augmentation of labor was begun. Patient underwent amniotomy and clear fluid was obtained. Patient progressed through labor becoming uncomfortable and requesting Nubain. Patient did receive Nubain x 1. Patient was noted GBS positive and was treated with 3 doses of ampicillin. Patient progressed to complete began pushing and had a normal spontaneous vaginal delivery of a viable male at 1604, weight of 6 pounds 12.6 ounces, Apgars of 8 and 9 at 1 and 5 minutes respectively. Patient has done well . On this day #2 she is ambulating and voiding without difficulty. She is tolerating a regular diet without nausea or vomiting. Liver enzymes are noted to be trending down. Repeat AST ALT are pending today. Blood pressures have been well-controlled with labetalol 300 mg 3 times daily. Lochia is noted to be minimal. She is pumping as infant is in the nursery on high flow oxygen, please see pediatrics notes for her progress on infant. Pain is well-controlled. Will plan discharge home later today. Patient Condition at Discharge: Good Plan - Discharge Summary New Discharge Prescriptions: No Action methIMAzole [Tapazole] 5 mg PO DAILY Labetalol [Trandate] 300 mg PO BID Discharge Medication List Labetalol [Trandate] 300 mg PO BID 09/17/24 [History] methIMAzole [Tapazole] 5 mg PO DAILY 09/17/24 [History] Follow up Appointment(s)/Referral(s): Tammy Ya DO [Doctor of Osteopathic Medicine] - 10/30/24 1:00 pm Patient Instructions/Handouts: Vaginal Delivery (DC), Vaginal Delivery (GEN) Activity/Diet/Wound Care/Special Instructions: No tub baths or intercourse until 6 weeks . [id number] ibuprofen 600 mg or 3 tablets every 6 hours as needed for pain. Patient is to be seen in the office for routine 6-week check, should she have any concerns prior this visit she is urged to call the office Discharge Disposition: HOME SELF-CARE
[2024-09-20 09:04] LABS: ALT 57 U/L (4-34); AST 43 U/L (14-36)
[2024-09-20 18:10] VITALS: BP 144/95; PULSE 88; RESP 18; TEMP 98.1
== END 2024-09-20 19:00 | disposition home or self-care (01) | DRG 807 ==
LOC: 4FBP 16:03
PROVIDERS: ADMIT Obstetrics & Gynecology Obstetrics; ATTEND Obstetrics & Gynecology Obstetrics
PROC: 3E0P7VZ Introduction of Hormone into Female Reproductive, Via Natural or Artificial Opening (ICD-10-PCS; principal; 2024-09-17)
PROC: 10907ZC Drainage of Amniotic Fluid, Therapeutic from Products of Conception, Via Natural or Artificial Opening (ICD-10-PCS; 2024-09-18)
PROC: 0KQM0ZZ Repair Perineum Muscle, Open Approach (ICD-10-PCS; 2024-09-18)
PROC: 10E0XZZ Delivery of Products of Conception, External Approach (ICD-10-PCS; 2024-09-18)
PROC: 3E0134Z Introduction of Serum, Toxoid and Vaccine into Subcutaneous Tissue, Percutaneous Approach (ICD-10-PCS; 2024-09-19)
DX: O10.02 Pre-existing essential hypertension complicating childbirth (principal); O11.4 Pre-existing hypertension with pre-eclampsia, complicating childbirth; O99.824 Streptococcus B carrier state complicating childbirth; O99.62 Diseases of the digestive system complicating childbirth; O99.284 Endocrine, nutritional and metabolic diseases complicating childbirth; O70.1 Second degree perineal laceration during delivery; E07.9 Disorder of thyroid, unspecified; K21.9 Gastro-esophageal reflux disease without esophagitis; Z79.899 Other long term (current) drug therapy; Z23 Encounter for immunization; Z3A.37 37 weeks gestation of pregnancy; Z37.0 Single live birth
CPT/HCPCS: 81001; 82565; 82570; 83615; 84156; 84450; 84460; 84520; 84550; 85025; 85027; 85384; 85610; 85730; 90707

== ENCOUNTER → 2024-11-04 | Outpatient (CLI) | payer BC ==
[2024-11-04 15:13] LABS: HCT 42.2 % (37.2-46.3); HGB 13.8 g/dL (12.0-15.0); MCH 30.6 pg (27.0-32.0); MCHC 32.7 g/dL (32.0-37.0); MCV 93.6 FL (80.0-97.0); Mean Platelet Volume 10.4 FL (9.5-12.2); NRBC Per 100 WBC 0 X 10*3/uL (0.00-0.01); Platelet Count 335 X 10*3/uL (140-440); RBC 4.51 X 10*6/uL (4.10-5.20); RDW 12.7 % (11.5-14.5); WBC 7.96 X 10*3/uL (4.50-10.00)
[2024-11-04 15:56] LABS: BUN/Creat Ratio 26.75 Ratio (12.00-20.00); Blood Urea Nitrogen 21.4 mg/dL (9.0-27.0); Calcium 9.8 mg/dL (8.7-10.3); Carbon Dioxide 27.2 mmol/L (21.6-31.8); Chloride 104 mmol/L (96-109); Glucose 85 mg/dL (70-110); Potassium 4.5 mmol/L (3.5-5.5); Sodium 142 mmol/L (135-145)
[2024-11-04 15:57] LABS: ALT 66 U/L (8-44); AST 41 U/L (13-35); Albumin 4.4 g/dL (3.8-4.9); Albumin/Globulin Ratio 1.76 Ratio (1.60-3.17); Alkaline Phosphatase 71 U/L (41-126); Bilirubin, Conjugated <0.20 mg/dL (0.20-0.40); Bilirubin,Unconjugated >0.20 mg/dL (0.20-1.00); Globulin 2.5 g/dL (1.6-3.3); Total Bilirubin 0.4 mg/dL (0.3-1.2); Total Protein 6.9 g/dL (6.2-8.2)
== END | disposition home or self-care (01) ==
LOC: LABWHC1 10:32
PROVIDERS: ATTEND Internal Medicine Interventional Cardiology
DX: I10 Essential (primary) hypertension (principal)
CPT/HCPCS: 36415; 80048; 80076; 84443; 85027

== ENCOUNTER → 2024-12-18 | Outpatient (CLI) | payer BC ==
[2024-12-18 10:15] LABS: HCT 40.1 % (37.2-46.3); HGB 12.9 g/dL (12.0-15.0); MCH 29.7 pg (27.0-32.0); MCHC 32.2 g/dL (32.0-37.0); MCV 92.4 FL (80.0-97.0); NRBC Per 100 WBC 0 X 10*3/uL (0.00-0.01); Platelet Count 346 X 10*3/uL (140-440); RBC 4.34 X 10*6/uL (4.10-5.20); RDW 12.4 % (11.5-14.5)
[2024-12-18 10:32] LABS: ALT 41 U/L (8-44); AST 35 U/L (13-35); Albumin/Globulin Ratio 1.74 Ratio (1.60-3.17); Alkaline Phosphatase 69 U/L (41-126); BUN/Creat Ratio 18.25 Ratio (12.00-20.00); Bilirubin, Conjugated <0.20 mg/dL (0.20-0.40); Blood Urea Nitrogen 14.6 mg/dL (9.0-27.0); Calcium 9.3 mg/dL (8.7-10.3); Carbon Dioxide 24.4 mmol/L (21.6-31.8); Chloride 104 mmol/L (96-109); Globulin 2.3 g/dL (1.6-3.3); Glucose 81 mg/dL (70-110); Potassium 4.3 mmol/L (3.5-5.5); Sodium 138 mmol/L (135-145); T4, Free (Free Thyroxine) 1.11 ng/dL (0.80-1.80); Total Bilirubin 0.3 mg/dL (0.3-1.2); Total Protein 6.3 g/dL (6.2-8.2)
[2024-12-18 12:15] LABS: Bilirubin,Unconjugated >0.1 mg/dL (0.2-1.0)
== END | disposition home or self-care (01) ==
LOC: LABWHC1 07:11
PROVIDERS: ATTEND Internal Medicine Interventional Cardiology
DX: I10 Essential (primary) hypertension (principal); E05.90 Thyrotoxicosis, unspecified without thyrotoxic crisis or storm
CPT/HCPCS: 36415; 80053; 82248; 84439; 84443; 84481; 85027